=== PATIENT | female | born 1970 | race Two or more races ===

== ENCOUNTER 2017-03-20 06:03 | Observation (INO) | payer BC ==
[2017-03-20] VITALS (11 sets, daily range): BP systolic 96–128; BP diastolic 44–77
[~2017-03-20] VITALS: Ht 167.6 cm; Wt 60.8 kg
[2017-03-20] MEDS ORDERED: NKM (06:52)
[2017-03-20] MEDS ORDERED: cefOXitin Sod 1 GM in D5W 55 ML IVPB ONE (07:00)
[2017-03-20] MEDS ORDERED: Ropivacaine 5mg/ml Vial 20ml INJ ONE (07:37)
--- NOTE | 2017-03-20 07:42 | Anethesia Preoperative Eval ---
Anesthesia Pre-op PMH/ROS General Date of Evaluation: Mar 20, 2017 Anesthesiologist: Stanley ASA Score: ASA 1 Mallampati Score Class I : Soft palate, uvula, fauces, pillars visible Class II: Soft palate, uvula, fauces visible Class III: Soft palate, base of uvula visible Class IV: Only hard plate visible Mallampati Classification: Class II Surgeon: Laith Diagnosis: Left ovarian cyst Surgical Procedure: Pelviscopy, hysteroscopy D&C, left ovarian cystectomy Anesthesia History: none Family History: no anesthesia problems Allergies: Coded Allergies: No Known Allergies (Unverified , 03/19/17) Medications: see eMAR Past Medical History Cardiovascular: Denies: CAD, HTN, PA, arrhythmia, other, valve dz Pulmonary: Denies: COPD, MARIA DE JESUS, asthma, other Gastrointestinal/Genitourinary: Denies: CRI, ESRD, GERD, other Neurologic/Psychiatric: Denies: CVA, TIA, dementia, depression/anxiety, other Endocrine: Denies: DM, hypothyroidism, other, steroids HEENT: Denies: [place] IRA (L), [place] IRA (R), cataract (L), cataract (R), glaucoma, other Hematology/Immune: Denies: DVT, anemia, bleeding disorder, other Musculoskeletal/Integumentary: Denies: DDD, DJD, OA, RA, edema, other PSxH Narrative: D&C, c/s Anesthesia Pre-op Phys. Exam Physician Exam Last Vital Signs Date Time Temp Pulse Resp B/P Pulse Ox O2 Delivery O2 Flow Rate FiO2 03/20/17 06:53 98.2 76 20 125/75 99 Room Air Constitutional: NAD Cardiovascular: RRR Respiratory: CTA Airway Exam Mallampati Score: Class II MO: full ROM: full Teeth: intact Anesthesia Pre-op A/P Labs see chart Urine Test Test 03/20/17 06:35 Urine HCG, Qualitative Negative Studies Pre-op Studies: EKG - sr Risk Assessment & Plan Assessment: ASA II Plan: GA Status Change Before Surgery: No Pre-Antibiotics Drug: Ancef 1g Given Within 1 Hr of Incision: Yes ELVIA MACARIO M.D. Mar 20, 2017 07:42
[2017-03-20] MEDS ORDERED: Ketorolac 30mg Inj ONE (07:45)
[2017-03-20] MEDS ORDERED: Zemuron 50mg/5ml Inj IV ONE (07:45)
[2017-03-20] MEDS ORDERED: LR 1000ml ONE (07:45)
[2017-03-20] MEDS ORDERED: Lidocaine 1% MPF 10mg/ml 5ml ONE (07:45)
[2017-03-20] MEDS ORDERED: Midazolam 2mg/2ml Inj ONE (07:45)
[2017-03-20] MEDS ORDERED: Propofol 10mg/ml 20ml IV ONE (07:45)
[2017-03-20] MEDS ORDERED: Metoclopramide 10mg/2ml Inj ONE (07:45)
[2017-03-20] MEDS ORDERED: Dexamethasone 4mg/ml vial ONE (07:45)
[2017-03-20] MEDS ORDERED: fentaNYL 250mcg/5ml ONE (07:45)
[2017-03-20] MEDS ORDERED: Sterile Water Irrig 1000ml IRRIG ONE (07:45)
--- NOTE | 2017-03-20 07:45 | Pre-Procedure Note/Attestation ---
Pre-Procedure Note/Attestation Complete Prior to Procedure Planned Procedure: not applicable Procedure Narrative: Co2 laser pelviscopy, ovarian cystectomy, hysteroscopy, dilation and curettage, possible ablation of endometriosis Indications for Procedure Pre-Operative Diagnosis: ovarian cyst/ pelvic pain Attestation I attest that I discussed the nature of the procedure; its benefits; risks and complications; and alternatives (and the risks and benefits of such alternatives ), prior to the procedure, with the patient (or the patient's legal apprenticeship representative). I attest that, if there was a reasonable possibility of needing a blood transfusion, the patient (or the patient's legal apprenticeship representative) was given the [place] [employer] standardized written summary, pursuant to the [place] Blood Safety Act ([place] Health and Safety Code # 1645, as amended). I attest that I re-evaluated the patient just prior to the surgery and that there has been no change in the patient's H&P, except as documented below: TEMO VELEZ Mar 20, 2017 07:45
[2017-03-20] MEDS ORDERED: ProvayBlue 5mg/ml 10ml amp INJ ONE (08:00)
[2017-03-20] MEDS ORDERED: LR 1000ml 1,000 ML IVLG SCH (08:12)
--- NOTE | 2017-03-20 08:12 | Immediate Post-Op Evaluation ---
Immediate Post-Op Evalulation Immediate Post-Op Evalulation Procedure: Pelviscopy, hysteroscopy, D&C, left ovarian cystectomy Date of Evaluation: Mar 20, 2017 Time of Evaluation: 10:09 IV Fluids: 1L Blood Products: 0 Estimated Blood Loss: 300 Urinary Output: 0 Blood Pressure Systolic: 96 Blood Pressure Diastolic: 44 Pulse Rate: 83 Respiratory Rate: 16 O2 Sat by Pulse Oximetry: 99 Temperature (Fahrenheit): 97.8 Pain Score (1-10): 0 Nausea: No Vomiting: No Complications 0 Patient Status: awake, reacts, patent, none Hydration Status: adequate Drug: Ancef 1g Given Within 1 Hr of Incision: Yes Time Given: 08:00 ELVIA MACARIO M.D. Mar 20, 2017 08:12
[2017-03-20] MEDS ORDERED: Hydromorphone 0.5mg/0.5ml inj IVP PRN (08:15)
[2017-03-20] MEDS ORDERED: DiphenhydrAMINE 50mg/ml Inj IVP PRN ×2 (08:15→13:00)
[2017-03-20] MEDS ORDERED: Metoclopramide 10mg/2ml Inj IVP PRN ×2 (08:15→13:00)
[2017-03-20] MEDS ORDERED: Midazolam 2mg/2ml Inj IVP PRN (08:15)
[2017-03-20] MEDS ORDERED: LORazepam Inj 2mg/ml 1ml IV PRN (08:15)
[2017-03-20] MEDS ORDERED: Ketorolac 30mg Inj IV PRN (08:15)
[2017-03-20] MEDS ORDERED: fentaNYL 100 mcg/2 mL IV PRN (08:15)
--- NOTE | 2017-03-20 10:10 | 48 Hour Post Anesthesia Eval ---
Post Anesthesia Evaluation Procedure: Pelviscopy, hysteroscopy, D&C, left ovarian cystectomy Date of Evaluation: Mar 20, 2017 Time of Evaluation: 12:39 Blood Pressure Systolic: 109 0: 73 Pulse Rate: 82 Respiratory Rate: 18 Temperature (Fahrenheit): 97.1 O2 Sat by Pulse Oximetry: 98 Airway: patent Nausea: No Pain Intensity: 0 Hydration Status: adequate Cardiopulmonary Status: at [facility] Mental Status/LOC: patient returned to baseline Post-Anesthesia Complications: 0 Follow-up care needed: ready to discharge ELVIA MACARIO M.D. Mar 20, 2017 10:10
--- NOTE | 2017-03-20 10:12 | Brief Operative Note ---
Immediate Post Operative Note Operative Note Pre-op Diagnosis: ovarian cyst/ pelvic pain Procedure: co2 laser pelviscopy, left ovarian cystectomy, lysis of adhesions, ablation of endometriosis Post-op Diagnosis: left ovarian endometrioma adhesions Surgeon: prosper Micro Paleontologist: Stella Anesthesiologist: Scott Anesthesia: general Specimen: yes Complications: none Condition: stable Estimated Blood Loss: volume - 300cc TEMO VELEZ Mar 20, 2017 10:12
--- NOTE | 2017-03-20 11:15 | Operative Note - Dictated ---
DATE OF OPERATION: 03/20/2017 PREOPERATIVE DIAGNOSIS: Left ovarian mass, endometriosis. POSTOPERATIVE DIAGNOSIS: Left ovarian mass, endometriosis. PROCEDURES: 1. CO2 laser pelviscopy. 2. Left ovarian cystectomy. 3. Lysis of adhesions. 4. Ablation of endometriosis. 5. Hysteroscopy dilation and curettage. SURGEON: Estela Ozuna M.D. OPTOMETRY TEACHER: Sky Douglas M.D. ANESTHESIOLOGIST: Dr. Chavez. ANESTHESIA: General endotracheal. ESTIMATED BLOOD LOSS: 300 mL. COMPLICATIONS: None. FINDINGS: Approximately a 5 to 6 cm left ovarian endometrioma, adhesions between uterus and anterior abdominal wall. Adhesions between the left ovarian endometrioma and cul-de-sac. Cul-de-sac stained with hemosiderin. Some filmy adhesions between bilateral ovaries and pelvic sidewall. PROCEDURE IN DETAIL: After ensuring informed consent, the patient was taken to the operating room, where general anesthesia was induced. The patient was sterilely prepped and draped. Weighted speculum was placed in the vagina. Cervix was dilated to an 8 Hegar dilator. Hysteroscope was placed inside the uterine cavity. Uterine cavity was distended and appeared to be normal with both ostia observed. Hysteroscope was withdrawn. A HUMI-type manipulator was placed inside the uterine cavity and inflated to 10 mL. Attention was turned to the abdomen where a small incision was made inside the umbilicus after infiltration with local. Veress needle was placed inside the peritoneal cavity and intraperitoneal placement was confirmed with low opening pressures. A 10 mm trocar was placed inside the umbilicus and intraperitoneal placement was confirmed with the camera. After infiltration with local, two 5 mm trocars were placed laterally and suprapubically in the standard fashion under direct visualization. Pelvis was explored, there were multiple adhesions between the left ovary and pelvic sidewall between the uterus and anterior abdominal wall and some filmy once between the right ovary and pelvic sidewall. Adhesions were carefully lysed using laser and blunt dissection. Incision was made on the ovarian serosa, capsule of the cyst was identified and both bluntly and sharply dissected off of the underlying ovarian stroma. Cyst was ruptured removed through the midline port and the pelvis was copiously irrigated and the irrigant was suctioned off. Redundant serosa was trimmed and ovary was cauterized with bipolar to assure excellent hemostasis. Some cul-de-sac adhesions were lysed to free up the ovaries. Right lateral abdominal wall Endometriotic lesions were ablated with laser. Again pelvis was copiously irrigated with a liter of normal saline. Again excellent hemostasis was assured. All trocars were removed under direct visualization. Fascia was closed with 0 Vicryl over the umbilical port and skin was closed with 4-0 Monocryl overall the incision. Steri-Strips were placed over the skin at the end of the procedure. All instrument and lap count was correct x2. The patient was taken to the recovery area extubated and in stable condition. Estela Ozuna M.D. DR: LYDIA JOB#: [id number] CC:
[2017-03-20] MEDS ORDERED: D5 1/2NS 1000ml IV ONE (11:45)
[2017-03-20] MEDS ORDERED: Tylenol #3 tab (300mg/30mg) ORAL PRN (13:00)
[2017-03-20] MEDS ORDERED: HYDROmorphone 1mg/ml Carpuject SUBQ PRN (13:00)
[2017-03-20] MEDS ORDERED: D5 1/2NS 1,000 ML IV SCH (13:00)
[2017-03-20] MEDS ORDERED: Norco 5mg/325mg tab ORAL PRN (13:00)
[2017-03-20 15:01] LABS: MEAN CORPUSCULAR HGB CONC 32.1 G/DL (32.0-36.0); MEAN CORPUSCULAR VOLUME 90 FL (80-99); MEAN PLATELET VOLUME 8.6 FL (6.5-10.1); PLATELET COUNT 239 K/UL (150-450); RED BLOOD COUNT 4.43 M/UL (4.20-5.40); RED CELL DISTRIBUTION WIDTH 12.3 % (11.6-14.8); WHITE BLOOD COUNT 12.4 K/UL (4.8-10.8)
[2017-03-20 15:34] LABS: BAND NEUTROPHILS % (MANUAL) 1 % (0-8); LYMPHOCYTES % (MANUAL) 3 % (20-45); NEUTROPHILS % (MANUAL) 90 % (45-75); PLATELET MORPHOLOGY NORMAL; TOTAL CELLS COUNTED 100
[2017-03-20 15:35] LABS: BASOPHILS % (MANUAL) 0 % (0-2); EOSINOPHILS % (MANUAL) 0 % (0-3); PLATELET ESTIMATE ADEQUATE
== END 2017-03-20 18:40 | disposition home or self-care (01) ==
LOC: SUR 06:03 → 4E 11:44
DX: N83.202 Unspecified ovarian cyst, left side (principal); N80.1 Endometriosis of ovary
CPT/HCPCS: 36415; 58662; 81025; 85007; 85025; G0378; J0690; J1100; J1885; J2250; J2405; J2704; J2765; J2795; J3010; J7120; 94003; 94150